=== PATIENT | female | born 1985 | race Two or more races ===

== ENCOUNTER 2021-11-03 01:30 | Emergency (ER) | payer SELFPAY ==
[~2021-11-03] VITALS: Ht 160 cm; Wt 64.9 kg
--- NOTE | 2021-11-03 02:15 | NUR ---
ER QUALITY ASSURANCE QA LAB ANALYST @ BEDSIDE
--- NOTE | 2021-11-03 02:20 | NUR ---
URINE COLLECTED AND SENT TO LAB
[2021-11-03 02:39] LABS: BASOPHILS % (AUTO) 0.5 % (0.0-2.0); EOSINOPHILS % (AUTO) 0.9 % (0.0-6.0); HEMATOCRIT 34 % (33-45); HEMOGLOBIN 11.3 g/dL (11.5-14.8); LYMPHOCYTES # (AUTO) 0.9 K/uL (0.8-4.8); LYMPHOCYTES % (AUTO) 15.8 % (20.0-44.0); MEAN CORPUSCULAR HGB CONC 33 g/dl (31.0-36.0); MEAN CORPUSCULAR VOLUME 84 fL (82-100); MONOCYTES # (AUTO) 0.3 K/uL (0.1-1.30); MONOCYTES % (AUTO) 5.4 % (2.0-12.0); NEUTROPHILS # (AUTO) 4.6 K/uL (1.8-8.9); NEUTROPHILS % (AUTO) 77.4 % (43.0-81.0); PLATELET COUNT (AUTO) 351 K/uL (150-450); RED BLOOD CELL COUNT(AUTO) 4.08 MIL/uL (4.0-5.2)
[2021-11-03 02:42] LABS: BILIRUBIN,URINE NEGATIVE (NEGATIVE); COLOR,URINE YELLOW (YELLOW); LEUKOCYTE ESTERASE ,URINE NEGATIVE (NEGATIVE); NITRITE, URINE NEGATIVE (NEGATIVE); PROTEIN,URINE TRACE mg/dl (NEGATIVE); UGLUCOSE NEGATIVE (NEGATIVE); UROBILINOGEN,URINE 0.2 EU/dL (0.2)
[2021-11-03 02:43] LABS: CALCIUM, SERUM 9.1 mg/dL (8.5-10.1); CARBON DIOXIDE 25 mmol/L (21-32); CHLORIDE 105 mmol/L (98-107); GLUCOSE 85 mg/dL (74-106); POTASSIUM 3.6 mmol/L (3.5-5.1); SODIUM SERUM 141 mmol/L (136-145); UREA NITROGEN, BLOOD 24 mg/dL (7-18)
[2021-11-03 02:50] LABS: ALANINE AMINOTRANSFERASE 39 U/L (12-78); ALBUMIN 3.9 g/dL (3.4-5.0); ALKALINE PHOSPHATASE 61 U/L (46-116); ASPARTATE AMINOTRANSFERASE 46 U/L (15-37); BILIRUBIN,DIRECT 0.1 mg/dL (0.0-0.2); BILIRUBIN,TOTAL 0.4 mg/dL (0.2-1.0)
[2021-11-03 02:51] LABS: ACETAMINOPHEN < 2 ug/ml (10-30); ALCOHOL, BLOOD < 3 mg/dL (0-0)
[2021-11-03 02:54] LABS: BACTERIA,URINE Few /HPF (None Seen); MUCUS,URINE Few /LPF (None Seen); RBC,URINE 0-2 /HPF (0-2); SQUAMOUS EPITHELIAL CELL,UR Moderate /HPF (None Seen); WBC,URINE 0-2 /HPF (0-3)
[2021-11-03] MEDS ORDERED: LORAZEPAM INJ 2 MG/ML VIAL ONE ×2 (05:20→06:16)
--- NOTE | 2021-11-03 05:27 | NUR ---
Pt awoken and and keep saying "Im sorry that im irresponsible". Pt is agitated and crying. MD made aware and received an order to give Ativan 1mg IM. Noted and carried out.
[2021-11-03] MEDS ORDERED: LORAZEPAM INJ 2 MG/ML VIAL IM ONE (05:30)
[2021-11-03] MEDS ORDERED: LORAZEPAM INJ 2 MG/ML VIAL IV ONE (06:00)
--- NOTE | 2021-11-03 16:50 | NUR ---
SS Consult: SS Consult requested for drug abuse. homelessness and bizarre behavior. The pt. is a 36-year old female who presents to the ED BIB as pt. was allegedly found running around on the street acting erratically. SW met with pt. at bedside. The pt. appears unkempt, is A&O X4 and makes good eye contact. Pt.'s is restless with elevated mood and affect. The pt. states she was running because she believed that someone was after her. pt. stated she realized now that no one was after her. Patient tested positive for Methamphetamine and alcohol use. Pt. denies SI/HI and denies hallucinations. car worker provided support with motivational interviewing, education regarding drug dependence, brief intervention and referral to treatment. Pt. accepted addiction resources but refused referral to treatment centers. CATHY explored pt.'s living situation. Pt. states he has been homeless for a "while" and could not specify time. Pt. stated [place]". CATHY explored pt.'s mental health Hx. Pt. states she has been diagnosed with bipolar Disorder. SW offered referral for mental health services and pt. refused. Pt. states he is ambulatory and independent with her ADL's. SW explored pt.'s support system. Pt. states her mother is her support system. Plan: Pt. [facility] [place] [facility] [place] [facility]. SW provided TAP card. Pt. refused to sign homeless waiver. CATHY provided pt. with homeless, mental health and addictions resources and pt. accepted them : Year-round shelters: [facility] [address] [place] [address] ; [facility] [place] [address] [place] [address]; [facility] [id number] [facility] [address] Winter Shelters: SPA 2 | [facility] Alyssa: [facility] Address: Confidential (call for location ) Population Served: Coed # of Beds: 57 SPA 4 | [facility] Provider: [facility] Last Address: [address] [place] [address] # of Beds: 49 Population Served: Coed SPA 6 | [facility] Provider: [facility] Last [facility]: [address] [facility] [place] [address] # of Beds: 49 Population Served: Coed [facility] Provider: [place] Address: [address] [facility] [address] # of Beds: 20 Population Served: Women C[facility]Y Facility Provider: Home at Last Address: [address] [facility] [address] # of Beds: 30 Population Served: Women SPA 8 | [facility] Provider: Mo díaz Mariela Address: [address] [facility] [address] # of Beds: 65 Population Served: Coed Hygiene: [facility]: [address] [facility] ; [place] [facility] [address] [facility] ; [facility] [address] [facility] [place] . Food Resources: [place] [facility]- [address] [facility]; Meet Each Need with Dignity ([facility]) [address] [facility]; [facility] [address] [facility] [[email or web address]]; [facility] [address] [facility]. Mental Health resources provided: [facility] [address] [place] [address] ; [facility] [employer] [address] [facility] [address], [place] [address] ; [facility] [address] [place] [address] ; [facility] [address] [place] [address] Healthcare Clinics: [facility] [address] [facility], [address] [place]. [place] ; [facility] [address] [facility] [address] [place] [address]; [facility] [place] [address] [place] [address] [phone] Counseling--Outpatient [facility] [address] [facility], [place] [address] (Specializes in in-depth psychotherapy for emotional distress: anxiety, depression, interpersonal conflicts, life transitions, childhood abuse) [facility] [address] [place] [address] (Assist with solving problem marital difficulties, separation & divorce, aging parents, & grief, chronic & terminal illness) [facility] [address] [place] [address] (Deal with loss & grief, anxiety, marital difficulties) Homebound/Mental Health Services [address] [address] [facility], [address] [place] [address] (Provide in-home mental services to people who are incapable of leaving their homes) [facility] Elderly Senior Service/Resource Center [address] [place] [address] [facility] [address] [place] [address] PSYCHIATRIC OUTPATIENT SERVICES [facility] Partial Hospitalization and Intensive Outpatient Program (Managed Care and [place] Only)[address] [place] [address]. [facility] [phone] [facility] Partial Hospitalization and Outpatient [id number] [facility]. [address] [place], [place] [phone] Replaced by [facility] [id number] [facility] [address] [place], [place] [phone] [facility] Partial Hospitalization and Outpatient [id number] [facility], [phone] Substance Abuse resources provided included: [facility] Substance Abuse Self-Helpline ([facility]) ; [facility] [address] [facility]. [place] [id number] ; [facility] [address] [facility] [address] ; [facility] [address] [place] [address] ; [facility] [address] [facility] [phone] ; [facility] [address] [facility] [address] ; [facility] [address] [facility] [phone] ; [facility] Substance Abuse Helpline([facility] ; [facility] ; [facility]; [facility] [place]; [facility] Arnie Taylor; [place] [facility] [place]; [place] [facility] [place]; [facility] [place]; [facility]'s [employer] [place]; Alcoholics Anonymous -SFV; Nq-Wqgy-Qckxzum ; Marijuana Anonymous -SFV; Narcotics Anonymous www.na.org;
[2021-11-03 17:52] VITALS: BP 135/88
--- NOTE | 2021-11-03 17:52 | NUR ---
Patient given written and verbal discharge instructions. Patient verbalizes understanding of instructions. Patient is ambulatory with steady gait. Refuses offer of senior care placement. Patient given list of available shelters in surrounding area.
== END 2021-11-03 17:52 | disposition home or self-care (01) ==
LOC: ER 01:37 → EDBD 01:37 → ER 17:52
DX: R46.1 Bizarre personal appearance (principal)
CPT/HCPCS: 36415; 80048; 80076; 80143; 80307; 80320; 81001; 82962; 85025; 93005; 96372 ×2; 99284; J2060; G0480